=== PATIENT | male | born 1965 | race Caucasian/White ===

== ENCOUNTER 2017-10-15 16:14 | Emergency (ER) | payer OTHER, BC ==
[~2017-10-15] VITALS: Ht 167.6 cm; Wt 77.1 kg
[~2017-10-15 16:14] MED LIST: CILOXAN 5 ML5 M1 OT
[2017-10-15] MEDS ORDERED: NAPROSYN500 MG PO (16:27)
[2017-10-15] MEDS ORDERED: KEFLEX500 M1 PO (16:27)
[2017-10-15] MEDS ORDERED: VIBRAMYCIN100 MG PO (16:38)
== END 2017-10-15 16:57 | disposition home or self-care (01) ==
LOC: ED 16:14
DX: S51.812A Laceration without foreign body of left forearm, initial encounter (principal); R03.0 Elevated blood-pressure reading, without diagnosis of hypertension; X58.XXXA Exposure to other specified factors, initial encounter; Y93.89 Activity, other specified; Y92.89 Other specified places as the place of occurrence of the external cause; Y99.8 Other external cause status

== ENCOUNTER → 2018-10-05 | Outpatient (CLI) | payer SELFPAY ==
[~2018-10-05] MED LIST changes: +KEFLEX500 M1 PO; +NAPROSYN500 MG PO; +VIBRAMYCIN100 MG PO
== END | disposition home or self-care (01) ==
LOC: ORTHO 01:24
DX: M79.671 Pain in right foot (principal)